=== PATIENT | female | born 1985 | race Caucasian/White ===

== ENCOUNTER 2016-12-23 00:30 | Inpatient (IN) | payer BC ==
[2016-12-23] VITALS (31 sets, daily range): BP systolic 79–129; BP diastolic 47–80
[~2016-12-23] VITALS: Ht 170.2 cm; Wt 86.4 kg
[2016-12-23 01:32] LABS: EOSINOPHIL (%) 0.2 % (0-5); HEMATOCRIT 38.9 % (36.0-46.0); IMMATURE GRANULOCYTE (%) 0.4 % (0.0-0.7); IMMATURE GRANULOCYTE COUNT 0.1 K/uL; INSTRUMENT ABS NEUTROPHIL CT 9.8 K/uL; LYMPHOCYTE COUNT 2.6 K/uL (1.0-2.8); MCH 28.1 PG (29.0-34.0); MCHC 33.2 G/DL (30.0-36.0); MCV 84.7 FL (83-99); MEAN PLAT.VOLUME 9.1 uM^3 (9.5-12.4); MONOCYTE (%) 6.9 % (3-12); MONOCYTE COUNT 0.9 K/uL (0-0.8); NEUTROPHIL (%) 73.3 % (45-76); NEUTROPHIL COUNT 9.8 K/uL (1.8-6.4); PLATELET COUNT 232 K/uL (156-360); RBC DIS.WIDTH-CV 13.9 % (11.8-14.6); RBC DIS.WIDTH-SD 42.8 % (39-53); RED BLOOD COUNT 4.59 M/uL (3.80-5.20); WHITE BLOOD COUNT 13.4 K/uL (4.1-10.2)
[2016-12-24 06:30] LABS: EOSINOPHIL (%) 0.4 % (0-5); EOSINOPHIL COUNT 0.1 K/uL (0-0.3); HEMATOCRIT 34.4 % (36.0-46.0); IMMATURE GRANULOCYTE (%) 0.4 % (0.0-0.7); IMMATURE GRANULOCYTE COUNT 0.1 K/uL; LYMPHOCYTE COUNT 2.4 K/uL (1.0-2.8); MCH 28.6 PG (29.0-34.0); MCHC 33.1 G/DL (30.0-36.0); MCV 86.4 FL (83-99); MEAN PLAT.VOLUME 9.3 uM^3 (9.5-12.4); MONOCYTE (%) 9.6 % (3-12); MONOCYTE COUNT 1.5 K/uL (0-0.8); NEUTROPHIL (%) 74.6 % (45-76); PLATELET COUNT 202 K/uL (156-360); RBC DIS.WIDTH-CV 14.1 % (11.8-14.6); RBC DIS.WIDTH-SD 44.3 % (39-53); RED BLOOD COUNT 3.98 M/uL (3.80-5.20); WHITE BLOOD COUNT 16.1 K/uL (4.1-10.2)
[2016-12-24 07:43] VITALS: BP 113/78
[2016-12-24 15:39] VITALS: BP 118/72
[2016-12-24 22:15] VITALS: BP 96/58
== END 2016-12-25 12:35 | disposition home or self-care (01) | DRG 775 ==
LOC: LDRP-OP 00:30 → 2WEST 00:31 → LDRP-OP 01-18 15:52
PROVIDERS: Midwife; Nurse Practitioner
PROC: 0DQR0ZZ Repair Anal Sphincter, Open Approach (ICD-10-PCS; principal; 2016-12-23)
PROC: 10E0XZZ Delivery of Products of Conception, External Approach (ICD-10-PCS; principal; 2016-12-23)
PROC: 00HU33Z Insertion of Infusion Device into Spinal Canal, Percutaneous Approach (ICD-10-PCS; 2016-12-23)
PROC: 3E0S3CZ (ICD-10-PCS; 2016-12-23)
DX: O70.20 Third degree perineal laceration during delivery, unspecified (principal); O48.0 Post-term pregnancy; Z3A.40 40 weeks gestation of pregnancy; Z37.0 Single live birth
CPT/HCPCS: 85025; C1755; J3010; J7120

== ENCOUNTER 2018-03-02 22:19 | Emergency (ER) | payer BC ==
[~2018-03-02] VITALS: Ht 167.6 cm; Wt 79.4 kg
[2018-03-03 00:18] VITALS: BP 138/86
== END 2018-03-03 00:18 | disposition home or self-care (01) ==
LOC: EME 22:19
PROC: 0HQFXZZ Repair Right Hand Skin, External Approach (ICD-10-PCS; principal; 2018-03-03)
DX: S61.411A Laceration without foreign body of right hand, initial encounter (principal); W25.XXXA Contact with sharp glass, initial encounter; Y93.G1 Activity, food preparation and clean up
CPT/HCPCS: 99281; 99284